=== PATIENT | female | born 1965 | race Caucasian/White ===

== ENCOUNTER 2017-10-03 18:43 | Emergency (ER) | payer OTHER, MEDICAID ==
[~2017-10-03] VITALS: Ht 162.6 cm; Wt 72.6 kg
[~2017-10-03 18:43] MED LIST: ADDERALL 10 MG10 MG PO; ADDERALL 20 MG20 M1; ALDACTONE25 MG PO; AMBIEN 10 MG TA10 MG PO; AMBIEN 5 MG TABL5 M1 PO; APAP500 PO; AUGMENTIN 875-1 EACH PO; BUTALB-APAP-CA1 EACH PO; CARVEDILOL12.5 MG PO; CELEXA20 MG PO; CEPHALEXIN 500500 M3 PO; CIPRO500 MG PO; CIPROFLOXACIN500 M1 PO; COLACE100 MG PO; COREG25 MG PO; COREG6.25 MG; DOXYCYCLINE 10100 MG PO; FIORICET 50-301 EACH PO; FLECAINIDE ACET50 M1 PO; FLEXERIL PO; HYDROCHLOROTHIAZIDE; HYDROCODONE-AP1 EAC6 PO; HYDROCODONE-APA1 TA1 PO; IBUPROFEN 800800 M1 PO; IBUPROFEN 800800 MG PO; K-DUR 20 MEQ T20 MEQ PO; KEFLEX500 MG PO; KEPPRA 500 MG500 M1 PO; KLONOPIN1 MG PO; LEVAQUIN 750 M750 MG PO; LEVOTHYROXIN0.075 MG PO; LISINOPRIL; LISINOPRIL-HCT1 EACH PO; MEDROL DOSPAK21 TAB PO; MEDROLDOSEPACK PO; METHIMAZOLE10 MG PO; METOPROLOL SUCC50 MG PO; METOPROLOL TART25 MG PO; MIRALAX17 G1 PO; NEURONTIN 300300 M1 PO; NORCO 5-325 TA1 EACH PO; ONDANSETRON HCL4 M2 PO; OXYCONTIN80 M1 PO; PENICILLIN V P500 MG PO; PERCOCET PO; PRINIVIL10 MG PO; PROPRANOLOL 1010 MG PO; PROZAC20 MG PO; VICODIN 5-5001 EACH PO; XARELTO20 MG PO; ZOFRAN ODT4 MG PO
[2017-10-03] MEDS ORDERED: AUGMENTIN 875-1 EACH PO (19:50)
[2017-10-03] MEDS ORDERED: IMOVAX RABIE2.5 UNIT IM (19:50)
[2017-10-03] MEDS ORDERED: [UNRECOGNIZED DRUG - OTHER] IM (19:50)
[2017-10-03 20:07] VITALS: BP 124/67
== END 2017-10-03 20:07 | disposition home or self-care (01) ==
LOC: M.ERS 18:43
DX: S61.051A Open bite of right thumb without damage to nail, initial encounter (principal); I48.91 Unspecified atrial fibrillation; I10 Essential (primary) hypertension; E05.90 Thyrotoxicosis, unspecified without thyrotoxic crisis or storm; G62.9 Polyneuropathy, unspecified; Z23 Encounter for immunization; Z88.2 Allergy status to sulfonamides; Z88.5 Allergy status to narcotic agent; W54.0XXA Bitten by dog, initial encounter; Y93.89 Activity, other specified; Y92.89 Other specified places as the place of occurrence of the external cause; Y99.8 Other external cause status

== ENCOUNTER → 2017-10-06 | Outpatient (CLI) | payer OTHER, MEDICAID ==
[~2017-10-06] MED LIST changes: +IMOVAX RABIE2.5 UNIT IM; +[UNRECOGNIZED DRUG - OTHER] IM
[2017-10-06 13:15] VITALS: BP 95/59
--- NOTE | 2017-10-06 15:13 | NUR ---
ARRIVED AMBULATORY. MADE SELF COMFORTABLE. DENIES ADVERSE REACTION TO PRIOR INJECTION OF SAME. RABAVERT INJECTION COMPLETED AND TOLERATED WELL. RABIES IMMUNE GLOBULIN 3ML ADMINISTERED TO SITE OF BITE IN RIGHT THUMB. REMAINING MED GIVEN IN 4 EQUAL DEVIDED DOSES IM TO ALL 4 EXTREMITIES. TOLERATED WELL. DENIES NEEDS OR QUESTIONS AT DISCHARGE.
== END ==
LOC: M.INFUS 12:30
DX: Z23 Encounter for immunization (principal)

== ENCOUNTER → 2017-10-10 | Outpatient (CLI) | payer OTHER, MEDICAID | LOC: CANPRECLI → M.INFUS 08:00 | DX: Z53.9 Procedure and treatment not carried out, unspecified reason (principal) ==

== ENCOUNTER → 2017-10-14 | Outpatient (CLI) | payer OTHER, MEDICAID ==
--- NOTE | 2017-10-14 17:26 | NUR ---
PT. ARRIVED TO UNIT (PREOP) AT 1715. MADE COMFORTABLE IN A RECLINER. RABIES VACCINE GIVEN IN RT. DELTOID IM AT 1720. BANDAID APPLIED AFTERWARD. PT. TOLERATED WELL. LEFT AT 1726 AMBULATORY WITH A MAN, STABLE. RABVERT BY Pulse. LOT: [id number] EXP:11/2018
== END ==
LOC: M.INFUS 17:09
DX: Z23 Encounter for immunization (principal)

== ENCOUNTER 2018-10-22 13:51 | Emergency (ER) | payer OTHER, MEDICAID ==
[~2018-10-22] VITALS: Ht 162.6 cm; Wt 79.4 kg
[2018-10-22] MEDS ORDERED: ULTRAM 50MG TAB50 MG PO (14:59)
[2018-10-22] MEDS ORDERED: AUGMENTIN 875-1 EACH PO (14:59)
[2018-10-22 15:13] VITALS: BP 110/81
== END 2018-10-22 15:14 | disposition home or self-care (01) ==
LOC: M.ERS 13:51
DX: S61.452A Open bite of left hand, initial encounter (principal); I48.91 Unspecified atrial fibrillation; I10 Essential (primary) hypertension; E05.90 Thyrotoxicosis, unspecified without thyrotoxic crisis or storm; Z95.0 Presence of cardiac pacemaker; Z98.890 Other specified postprocedural states; Z88.2 Allergy status to sulfonamides; Z88.5 Allergy status to narcotic agent; W54.0XXA Bitten by dog, initial encounter; Y93.89 Activity, other specified; Y92.89 Other specified places as the place of occurrence of the external cause; Y99.8 Other external cause status

== ENCOUNTER 2018-11-29 18:07 | Emergency (ER) | payer OTHER, MEDICAID ==
[~2018-11-29] VITALS: Ht 162.6 cm; Wt 72.6 kg
[~2018-11-29 18:07] MED LIST changes: +ULTRAM 50MG TAB50 MG PO
[2018-11-29] MEDS ORDERED: SYNTHROID50 MCG PO (18:16)
[2018-11-29 18:40] LABS: INFLUENZA A ANTIGEN None Detected (None Detect); INFLUENZA B ANTIGEN None Detected (None Detect)
[2018-11-29 20:17] LABS: ABSOLUTE LYMPHOCYTES 0.8 thou/uL (0.8-5.3); ABSOLUTE MONOCYTES 0.4 thou/uL (0.0-1.2); ABSOLUTE NEUTROPHILS 4.2 thou/uL (1.6-8.1); BASOPHILS 0.8 %; EOSINOPHILS 0.8 %; HEMATOCRIT 38.6 % (37.0-47.0); HEMOGLOBIN 13.2 gm/dL (12.0-15.0); LYMPHOCYTES 14.9 %; MCH 31.8 pg (26.0-34.0); MCHC 34.3 g/dL (28.0-37.0); MCV 92.7 fL (80.0-100.0); MONOCYTES 7.9 %; MPV 9.1 fl. (7.2-11.1); NUCLEATED RBCS 0 /100WBC; PLATELET COUNT* 206 thou/uL (150-400); POLYS 75.6 %; RBC 4.16 mil/uL (4.20-5.00); RDW-CV 13.1 % (10.5-14.5); WBC 5.6 thou/uL (4.0-11.0)
[2018-11-29 20:32] LABS: APTT 26.1 Seconds (25.0-31.3); PROTIME 10.1 Seconds (9.20-11.50)
[2018-11-29 20:36] LABS: ALBUMIN 3.7 g/dL (3.4-5.0); ALKALINE PHOSPHATASE 82 U/L (46-116); ANION GAP 10 mmol/L (7-16); BUN 14 mg/dL (7-18); CHLORIDE 102 mmol/L (98-107); CO2 29 mmol/L (21-32); GLUCOSE 118 mg/dL (70-99); SGOT 18 U/L (15-37); SGPT 19 U/L (30-65); SODIUM 141 mmol/L (136-145); TOTAL BILIRUBIN 0.3 mg/dL (<0.1-1.0); TOTAL PROTEIN 7.3 g/dL (6.4-8.2); TROPONIN-I LEVEL <0.06 ng/mL (<0.06)
[2018-11-29] MEDS ORDERED: ZPAK PO (22:07)
[2018-11-29] MEDS ORDERED: MEDROLDOSEPACK PO (22:07)
[2018-11-29] MEDS ORDERED: PROMETHAZINE V120 ML PO (22:07)
[2018-11-29 22:33] VITALS: BP 100/59
--- NOTE | 2018-11-30 10:04 | EKG ---
[place] [address] ELECTROCARDIOGRAM REPORT Name: PAULA ARITA Room: [facility]#: [id number] Admission: 11/29/18 Attend Phys: Discharge: 11/29/18 Date of : 67 Report #: [id number] THIS REPORT FOR: //name// [facility] ED Test Date: 2018-11-29 Test Time: 18:13:25 Pat Name: PAULA ARITA Department: Room: Gender: F Hammer Operator: FAY : 1965 Requested By: Ivis Awan Order Number: [id number] MD: Mj Slade Measurements Intervals [place] Rate: 88 P: 17 ME: 166 QRS: 37 QRSD: 55 T: 67 QT: 469 QTc: 568 Interpretive Statements Sinus rhythm Borderline T abnormalities, anterior leads Prolonged QT interval Compared to ECG 07/20/2017 19:58:23 T-wave abnormality now present Prolonged QT interval now present Electronically Signed On 11-30-2018 10:04:33 CDT by Mj Slade [email or web address] <ELECTRONICALLY SIGNED> By: Mj Slade MD, [facility] 11/30/18 1004 1813 1813 Mj Slade MD, [facility] /EPI
== END 2018-11-29 22:33 | disposition still patient (30) ==
LOC: M.ERS 18:07
PROVIDERS: Nurse Practitioner Family; Personal Emergency Response Attendant
DX: R05 Cough (principal); R09.81 Nasal congestion; E87.6 Hypokalemia; R07.0 Pain in throat; I10 Essential (primary) hypertension; E05.90 Thyrotoxicosis, unspecified without thyrotoxic crisis or storm; I48.91 Unspecified atrial fibrillation; Z98.890 Other specified postprocedural states; Z88.2 Allergy status to sulfonamides; Z88.5 Allergy status to narcotic agent

== ENCOUNTER 2019-09-08 17:13 | Emergency (ER) | payer OTHER, MEDICAID ==
[~2019-09-08] VITALS: Ht 160 cm; Wt 68.0 kg
[~2019-09-08 17:13] MED LIST changes: +PROMETHAZINE V120 ML PO; +SYNTHROID50 MCG PO; +ZPAK PO
[2019-09-08] MEDS ORDERED: LEVO-T75 MCG PO (17:27)
[2019-09-08 19:45] LABS: HEMATOCRIT 36.3 % (37.0-47.0); HEMOGLOBIN 12.8 gm/dL (12.0-15.0); MCH 31.6 pg (26.0-34.0); MCHC 35.4 g/dL (28.0-37.0); MCV 89.4 fL (80.0-100.0); MPV 9.1 fl. (7.2-11.1); NUCLEATED RBCS 0 /100WBC; PLATELET COUNT* 225 thou/uL (150-400); RBC 4.06 mil/uL (4.20-5.00); RDW-CV 12.9 % (10.5-14.5); WBC 5.9 thou/uL (4.0-11.0)
[2019-09-08 20:06] LABS: CALCIUM 8.8 mg/dL (8.5-10.1); CREATININE 0.8 mg/dL (0.6-1.3); POTASSIUM 3.8 mmol/L (3.5-5.1)
[2019-09-08 20:12] LABS: ABSOLUTE EOSINOPHILS 0.1 thou/uL (0.0-0.7); ABSOLUTE LYMPHOCYTES 1.9 thou/uL (0.8-5.3); ABSOLUTE MONOCYTES 0.2 thou/uL (0.0-1.2); ABSOLUTE NEUTROPHILS 3.6 thou/uL (1.6-8.1); ATYPICAL LYMPHS 11 %; PLATELET ESTIMATE ADEQUATE
[2019-09-08 20:17] LABS: ALBUMIN 3.9 g/dL (3.4-5.0); MAGNESIUM 2.1 mg/dL (1.8-2.4); TOTAL BILIRUBIN 0.3 mg/dL (<0.1-1.0); TOTAL PROTEIN 7.4 g/dL (6.4-8.2)
[2019-09-08 21:35] VITALS: BP 137/73
--- NOTE | 2019-09-09 11:11 | EKG ---
[place] [address] ELECTROCARDIOGRAM REPORT Name: PAULA ARITA Room: [facility]#: [id number] Admission: 09/08/19 Attend Phys: Discharge: 09/08/19 Date of : 67 Report #: [id number] THIS REPORT FOR: //name// [facility] ED Test Date: 2019-09-08 Test Time: 17:20:28 Pat Name: PAULA ARITA Department: Room: Gender: F Operations Manager/Coordinator: LINDA : 1965 Requested By: Kj Son Order Number: [id number] MD: Manolo Pa Measurements Intervals [place] Rate: 75 P: [place]: 166 QRS: 30 QRSD: 78 T: 6 QT: 502 QTc: 561 Interpretive Statements sinus rhythm Low voltage, precordial leads Borderline T abnormalities, inferior leads artifact noted Compared to ECG 11/29/2018 18:13:25 Low QRS voltage now present T-wave abnormality still present Electronically Signed On 09-09-2019 11:10:52 STOGY MAKER by Manolo Pa [email or web address] <ELECTRONICALLY SIGNED> By: Manolo Pa MD, [facility] [id number] Manolo Pa MD, [facility] /EPI
--- NOTE | 2019-09-09 11:11 | EKG ---
[place] [address] ELECTROCARDIOGRAM REPORT Name: GIA ARITAVero WELDON [id number] Admission: 09/08/19 Attend Phys: Discharge: 09/08/19 Date of : 67 Report #: [id number] THIS REPORT FOR: //name// [facility] ED Test Date: 2019-09-08 Test Time: 17:23:27 Pat Name: PAULA ARITA Department: Room: Gender: F Social Media Designer: LINDA : 1965 Requested By: Kj Son Order Number: [id number] MD: Manolo Pa Measurements Intervals [place] Rate: 62 P: 37 [place]: 189 QRS: 30 QRSD: 77 T: 51 QT: 391 QTc: 397 Interpretive Statements Sinus rhythm Low voltage, precordial leads Compared to ECG 11/29/2018 18:13:25 Low QRS voltage now present Prolonged QT interval no longer present Electronically Signed On 09-09-2019 11:11:17 ACCESS SPEC by Manolo Pa [email or web address] <ELECTRONICALLY SIGNED> By: Manolo Pa MD, [facility] 09/09/19 1111 1723 22 Manolo Pa MD, [facility] /EPI
== END 2019-09-08 21:36 | disposition home or self-care (01) ==
LOC: M.ERS 17:13
PROVIDERS: Emergency Medicine Emergency Medical Services
DX: R00.2 Palpitations (principal); I48.91 Unspecified atrial fibrillation; I10 Essential (primary) hypertension; E03.9 Hypothyroidism, unspecified; E85.1 Neuropathic heredofamilial amyloidosis; Z98.890 Other specified postprocedural states; Z90.49 Acquired absence of other specified parts of digestive tract; Z98.51 Tubal ligation status; Z88.2 Allergy status to sulfonamides; Z88.5 Allergy status to narcotic agent

== ENCOUNTER 2021-05-27 20:47 | Emergency (ER) | payer OTHER, MEDICAID ==
[~2021-05-27] VITALS: Ht 160 cm; Wt 76.7 kg
[~2021-05-27 20:47] MED LIST changes: +LEVO-T75 MCG PO
[2021-05-27] MEDS ORDERED: HYDROCHLOROTH12.5 M1 PO (21:05)
[2021-05-27 21:48] VITALS: BP 169/99
== END 2021-05-27 21:48 | disposition home or self-care (01) ==
LOC: M.ERS 20:47
DX: H43.391 Other vitreous opacities, right eye (principal); I48.91 Unspecified atrial fibrillation; G40.909 Epilepsy, unspecified, not intractable, without status epilepticus; G62.9 Polyneuropathy, unspecified; I10 Essential (primary) hypertension; Z98.890 Other specified postprocedural states; Z98.51 Tubal ligation status; Z90.49 Acquired absence of other specified parts of digestive tract; Z95.0 Presence of cardiac pacemaker; Z79.899 Other long term (current) drug therapy; Z88.2 Allergy status to sulfonamides; Z88.5 Allergy status to narcotic agent

== ENCOUNTER 2021-10-21 23:41 | Emergency (ER) | payer OTHER, MEDICAID ==
[~2021-10-21] VITALS: Ht 160 cm; Wt 72.6 kg
[~2021-10-21 23:41] MED LIST changes: +HYDROCHLOROTH12.5 M1 PO
[2021-10-22] MEDS ORDERED: VYVANSE50 MG PO (00:20)
[2021-10-22 01:20] LABS: ABSOLUTE EOSINOPHILS 0.2 thou/uL (0.0-0.7); ABSOLUTE LYMPHOCYTES 1.4 thou/uL (0.8-5.3); ABSOLUTE MONOCYTES 0.2 thou/uL (0.0-1.2); ABSOLUTE NEUTROPHILS 2.7 thou/uL (1.6-8.1); BASOPHILS 1.1 %; EOSINOPHILS 3.8 %; HEMATOCRIT 38.6 % (37.0-47.0); LYMPHOCYTES 30.2 %; MCH 30.4 pg (26.0-34.0); MCHC 33.5 g/dL (28.0-37.0); MCV 90.6 fL (80.0-100.0); MONOCYTES 5.5 %; MPV 8.8 fl. (7.2-11.1); NUCLEATED RBCS 0 /100WBC; PLATELET COUNT* 199 thou/uL (150-400); POLYS 59.4 %; RBC 4.26 mil/uL (4.20-5.00); RDW-CV 12.6 % (10.5-14.5); WBC 4.5 thou/uL (4.0-11.0)
[2021-10-22 01:36] LABS: CALCIUM 8.5 mg/dL (8.5-10.1); CREATININE 0.7 mg/dL (0.6-1.3)
[2021-10-22 01:37] LABS: POTASSIUM 2.9 mmol/L (3.5-5.1)
[2021-10-22 01:47] LABS: ALBUMIN 3.8 g/dL (3.4-5.0); MAGNESIUM 2.3 mg/dL (1.8-2.4); TOTAL BILIRUBIN 0.3 mg/dL (<0.1-1.0); TOTAL PROTEIN 7.2 g/dL (6.4-8.2)
[2021-10-22 02:00] LABS: URINE BILIRUBIN NEGATIVE (Negative); URINE BLOOD NEGATIVE (Negative); URINE CLARITY CLEAR; URINE COLOR YELLOW; URINE GLUCOSE-RANDOM NEGATIVE (Negative); URINE KETONES NEGATIVE (Negative); URINE LEUKOCYTES-REFLEX NEGATIVE (Negative); URINE NITRITE-REFLEX NEGATIVE (Negative); URINE PROTEIN NEGATIVE (Negative); URINE SPECIFIC GRAVITY <= 1.005 (1.005-1.030); URINE UROBILINOGEN 0.2 E.U./dl (0.2-1.0)
[2021-10-22] MEDS ORDERED: ZESTRIL10 MG PO (05:43)
[2021-10-22] MEDS ORDERED: HYDROCHLOROTH12.5 M1 PO (05:43)
[2021-10-22] MEDS ORDERED: KLOR-CON 1010 MEQ PO (05:43)
[2021-10-22 05:47] LABS: AMP/METHAMP POSITIVE (Negative); BARBITURATES Negative (Negative); BENZODIAZEPINES Negative (Negative); COCAINE Negative (Negative); METHADONE Negative (Negative); OPIATES Negative (Negative); PCP Negative (Negative); THC Negative (Negative)
[2021-10-22 05:55] VITALS: BP 147/81
--- NOTE | 2021-10-22 16:30 | EKG ---
[place] [address] ELECTROCARDIOGRAM REPORT Name: JUAN JPAULA Room: [facility]#: [id number] Admission: 10/21/21 Attend Phys: Discharge: 10/22/21 Date of : 67 Date of Service: 10/22/21 0012 Report #: [id number] THIS REPORT FOR: //name// [facility] ED Test Date: 2021-10-22 Test Time: 00:12:20 Pat Name: PAULA ARITA Department: Room: Gender: F Patternmaker Apprentice Wood: STACIE : 1965 Requested By: Daphne Ray Order Number: [id number] MD: Manolo Pa Measurements Intervals [place] Rate: 69 P: -6 [place]: 176 QRS: 1 QRSD: 78 T: 44 QT: 457 QTc: 490 Interpretive Statements Sinus rhythm Low voltage, precordial leads Nonspecific T abnormalities, lateral leads Borderline prolonged QT interval Compared to ECG 09/08/2019 17:23:27 no change Electronically Signed On 10-22-2021 16:30:04 LOAF COUNTER by Manolo Pa [email or web address] <ELECTRONICALLY SIGNED> By: Manolo Pa MD, [facility] 10/22/21 1630 001 0012 Manolo Pa MD, [facility] /EPI
== END 2021-10-22 05:55 | disposition home or self-care (01) ==
LOC: M.ERS 23:41
PROVIDERS: Emergency Medicine
DX: I10 Essential (primary) hypertension (principal); E87.6 Hypokalemia; I48.91 Unspecified atrial fibrillation; E03.9 Hypothyroidism, unspecified; Z88.2 Allergy status to sulfonamides; Z88.5 Allergy status to narcotic agent; Z98.890 Other specified postprocedural states; Z98.51 Tubal ligation status; Z90.49 Acquired absence of other specified parts of digestive tract; Z79.899 Other long term (current) drug therapy